=== PATIENT | female | born 1980 | race American Indian/Alaskan Native ===

== ENCOUNTER 2021-08-19 07:20 | Day surgery (SDC) | payer OTHER ==
[2021-08-18 12:07] LABS: Basophils # (Auto) 0.1 K/mm3 (0.0-0.1); Basophils % (Auto) 1.1 % (0.0-1.8); Eosinophils # (Auto) 0.2 K/mm3 (0.0-0.4); Eosinophils % (Auto) 3.2 % (0.0-4.3); Hematocrit 34.9 % (30.3-42.9); Hemoglobin 10.9 gm/dl (10.1-14.3); Lymphocytes # (Auto) 1.9 K/mm3 (1.2-5.4); Lymphocytes % (Auto) 30.2 % (13.4-35.0); Mean Corpuscular HGB Conc 31 % (30-34); Mean Corpuscular Volume 78 fl (79-97); Monocytes # (Auto) 0.5 K/mm3 (0.0-0.8); Monocytes % (Auto) 8.7 % (0.0-7.3); Platelet Count 378 K/mm3 (140-440); Red Blood Count 4.48 M/mm3 (3.65-5.03); Red Cell Distribution Width 14.6 % (13.2-15.2)
--- NOTE | 2021-08-18 14:41 | Anesthesia Consultation ---
Anesthesia Consult and Med Hx Date of service: 08/19/21 - Airway Anesthetic Teeth Evaluation: Good ROM Head & Neck: Adequate Mental/Hyoid Distance: Adequate Mallampati Class: Class II Intubation Access Assessment: Good - Pre-Operative Health Status ASA Pre-Surgery Classification: ASA1 Proposed Anesthetic Plan: General Nerve Block: TAP - Pulmonary Hx Smoking: No Hx Sleep Apnea: No - Central Nervous System Hx Psychiatric Problems: Yes (PTSD (witnessed murder of cousin)) - Gastrointestinal Hx Gastroesophageal Reflux Disease: No - Hematic Hx Sickle Cell Disease: No - Other Systems Hx Alcohol Use: Yes (Occas) Hx Cancer: No Hx Obesity: No
[~2021-08-19 07:20] MED LIST: ACETAMINOPHEN 500 MG TAB PO ONE; CELECOXIB 200 MG CAP PO NR; GABAPENTIN 300 MG CAP PO NR; LACTATED RINGERS 1,000 ML IV SCH; MAGNESIUM OXIDE 400 MG TAB PO ONE; MIDAZOLAM 2 MG/2 ML INJ IV NR; fentaNYL 100 MCG/2 ML INJ IV ONE
[2021-08-19] MEDS ORDERED: NEOMY 40 MG/POLYMYXIN B 200,000 UNITS/ML (GU) AMPULE IR ONE ×2 (07:21→10:49)
--- NOTE | 2021-08-19 07:23 | Short Stay Summary ---
Short Stay Documentation Date of service: 08/19/21 Narrative H&P: 40-year-old -0-0-2 with a history of dysfunctional uterine bleeding. The patient has undergone minor surgical procedure for her abnormal bleeding has been occurring for several years. She has also attempted medical management without significant improvement in her symptoms. She is elected to undergo definitive surgical management. - History Principal diagnosis: Dysfunctional uterine bleeding Past Medical History: other (Endometriosis) Past Surgical History: cholecystectomy, Other (D&C; LEEP; tubal ligation) Social history: single - Allergies and Medications Current Medications: Allergies bee venom protein (honey bee) Allergy (Verified 08/17/21 07:55) Unknown Home Medications Medication Instructions Recorded Confirmed Last Taken Type Elderberry Fruit and Flower [Black 1 each PO DAILY 08/17/21 08/17/21 Unknown History Elderberry 575 mg Cap] Ibuprofen [Motrin] 800 mg PO Q8HR PRN 08/17/21 08/17/21 Unknown History Multivitamin [One-Daily 1 each PO DAILY 08/17/21 08/17/21 Unknown History Multi-Vitamin] Ondansetron HCl [Zofran] 4 mg PO Q6H PRN 08/17/21 08/17/21 Unknown History Venlafaxine [Effexor 37.5mg tab] 37.5 mg PO QDAY 08/17/21 08/17/21 Unknown History Active Medications Celecoxib (Celecoxib 200 Mg Cap) 400 mg PO PREOP NR Stop: 08/19/21 23:59 Gabapentin (Gabapentin 300 Mg Cap) 300 mg PO PREOP NR Stop: 08/19/21 23:59 Lactated Ringer's (Lactated Ringers) 1,000 mls @ 125 mls/hr IV DIRECT HEATHER Midazolam HCl (Midazolam 2 Mg/2 Ml Inj) 2 mg IV PREOP NR Stop: 08/19/21 23:59 - Physical exam General appearance: no acute distress Integumentary: no rash HEENT: Atraumatic Lungs: Clear to auscultation Breasts: deferred Heart: Regular rate Gastrointestinal: normal Female Genitourinary: deferred Rectal Exam: deferred Extremities: no ischemia Neurological: Normal gait - Brief post op/procedure progress note Date of procedure: 08/19/21 Pre-op diagnosis: Dysfunctional uterine bleeding Post-op diagnosis: same Procedure: Robotic hysterectomy and bilateral salpingectomy Anesthesia: GETA Surgeon: ELLEN PABON Estimated blood loss: 50-100ml Pathology: list (Uterus, cervix, bilateral tubes) Specimen disposition: to lab Condition: stable - Hospital course Hospital course: Patient was admitted the day of surgery and underwent a robotic hysterectomy and bilateral salpingectomy. Please see operative note for details of surgery. Postoperative course was uneventful. - Disposition Condition at discharge: Good Disposition: 01 HOME / SELF CARE / HOMELESS Short Stay Discharge Plan Activity: other (Pelvic rest for 6 weeks) Diet: regular Additional Instructions: Patient may schedule follow-up with Dr. Pabon in 4 weeks Pelvic rest for 6 weeks Patient may shower but no tub baths for [address] in 2 weeks
--- NOTE | 2021-08-19 07:52 | Anesthesia Day of Surgery ---
Anesthesia Day of Surgery - Day of Surgery Patient Examined: Yes Patient H&P Reviewed: Yes Patient is NPO: Yes
[2021-08-19] MEDS ORDERED: ONDANSETRON 4 MG/2 ML INJ IV PRN (07:53)
[2021-08-19] MEDS ORDERED: HYDROmorphone 1 MG/1 ML INJ IV PRN (07:53)
[2021-08-19] MEDS ORDERED: ceFAZolin/Water 2 GM/20 ML 2 GM/20 ML SYRINGE IV NR (08:00)
[2021-08-19] MEDS ORDERED: BUPIVACAINE-EPINEPHRINE/PF 0.25%-1:200,000 (30 ML) VIAL INFILTRATI ONE (08:04)
[2021-08-19] MEDS ORDERED: BUPIVACAINE/PF (0.25%) 2.5 MG/ML 30 ML VIAL INFILTRATI ONE (08:05)
[2021-08-19] MEDS ORDERED: dexAMETHasone 4 MG/ML VIAL ONE (08:05)
[2021-08-19] MEDS ORDERED: ONDANSETRON 4 MG/2 ML INJ ONE (09:16)
[2021-08-19] MEDS ORDERED: fentaNYL 100 MCG/2 ML INJ ONE (09:16)
[2021-08-19] MEDS ORDERED: dexAMETHasone 20 MG/5 ML VIAL ONE (09:16)
[2021-08-19] MEDS ORDERED: propofoL 200 MG/20 ML VIAL IV ONE (09:16)
[2021-08-19] MEDS ORDERED: ePHEDrine SULFATE 50 MG/1 ML INJ ONE (09:24)
[2021-08-19] MEDS ORDERED: SODIUM CHLORIDE 0.9% IRR 1,500 ML BOTTLE IR ONE (10:49)
[2021-08-19] MEDS ORDERED: SODIUM CHLORIDE 0.9% IRRIG SOLN 2000 ML IR ONE (10:49)
--- NOTE | 2021-08-19 11:24 | Operative Report ---
Operative Report Operative Report: Date of surgery: August 19, 2021 Preoperative diagnoses: Dysfunctional uterine bleeding Postoperative diagnoses: Same as above Procedure: Robotic hysterectomy; bilateral salpingectomy Surgeon: Erin Reeder M.D. Crank Hand:Taylor Jacobo Anesthesia: Gen. endotracheal anesthesia Estimated blood loss: 50 mL Pathology: Uterus, cervix, bilateral tubes Indication: 40-year-old -0-0-2 with a history of dysfunctional uterine bleeding. The patient elected for definitive surgical management. Procedure: The patient was taken to the operating room and given general endotracheal anesthesia without complication after a time out was performed confirming the surgery and identity of the patient. She was prepped and draped in a normal sterile fashion. A bivalve speculum was placed in the patient's vagina and a single-tooth tenaculum placed on the anterior lip of the cervix. The uterus was sounded with the uterine sound. A stay suture with 0-vicryl was placed at 12 o'clock on the anterior cervix. A [employer] uterine manipulator was placed in the bivalve speculum was then removed. A warm laparotomy sponge was placed in the vagina. Attention was then turned to the patient's abdomen where a 12millimeter supra umbilical skin incision was then made. A Veress needle was placed and peritoneal entry was verified water-filled syringe. Insufflation of the peritoneal cavity was performed with CO2 gas. The 12 mm trocar was then placed under direct visualization. An additional 8 mm robotic trocar was placed on the patient's left and right lateral side just opposite of the supraumbilical trocar. An additional 5 mm right lateral trocar was then placed as the accessory port. The supraumbilical 12 mm trocar site was closed with the Zheng Mcmillan device and 0-vicryl suture. The patient was then placed in steep Trendelenburg. The da Lj robot was then engaged. A fenestrated forcep was placed in arm 2 and a vessel sealer was placed in arm 1. General survey of the abdomen and pelvis revealed evidence of a small leiomyoma on the right cornua of the uterus. Evidence of a prior tubal ligation. Ovaries are normal bilaterally. The surgeon then transferred to the surgical console. The mesosalpinx was then isolated on the right. The vessel sealer was used to coagulate the mesosalpinx which was then transected. The tube was transected from the ovary. The tubo-ovarian ligament was then coagulated and transected. The round ligament was then coagulated and transected also. The vesicouterine peritoneum was then entered from the patient's right side. The uterine vessels were then coagulated with the vessel sealer. The vessels were then transected . Attention was then turned to the patient's left side where the tubo-ovarian ligament and mesosalpinx were again isolated coagulated and transected. The vesical peritoneum was then entered from the left and joined in the midline. Peritoneum was reflected off of the lower uterine segment. Uterine vessels were then coagulated and then transected. The blood supply to the uterus was adequately contained, a posterior colpotomy was made. The V care ring was visualized. Posterior colpotomy was created with the monopolar scissors. The incision was continued circumferentially until anterior colpotomy was made. The cervix and uterus were amputated from the vaginal cuff. The uterus was then removed along with the tubes bilaterally through the vagina and a warm laparotomy sponge was placed and maintain the pneumoperitoneum. The vaginal cuff was then closed in a running fashion with V lock suture. Irrigation of the pelvis was performed. Surgicel was applied to the incision. The [employer] robot was undocked. The trocars were removed and the insuffliation was released. The skin was then reapproximated with 4-0 Monocryl. The tissue was sent to pathology which included the cervix, bilateral tubes and uterus. The patient was then successfully extubated. She was then taken to the recovery room in stable condition. All sponge laps and needle counts were correct x2.
[2021-08-19] MEDS: HYDROmorphone 1 MG/1 ML INJ IV PRN ×4 (12:23→13:55)
--- NOTE | 2021-08-19 14:22 | Post Anesthesia Evaluation ---
- Post Anesthesia Evaluation Patient Participated: Yes Airway Patent: Yes Stable Respiratory Function: Yes Nausea/Vomiting: No Temp > 96.8F: Yes Pain Manageable: Yes Adequeate Hydration: Yes Anesthesia Complications: No Block Receding Appropriately: Yes Patient on Ventilator: No
[2021-08-19 17:18] VITALS: BP 105/60
== END 2021-08-19 15:20 | disposition home or self-care (01) ==
LOC: OR 07:20
PROVIDERS: ATTEND Obstetrics & Gynecology
DX: N93.8 Other specified abnormal uterine and vaginal bleeding (principal); N80.0 Endometriosis of uterus; N88.8 Other specified noninflammatory disorders of cervix uteri; N83.8 Other noninflammatory disorders of ovary, fallopian tube and broad ligament; F43.10 Post-traumatic stress disorder, unspecified; Z91.030 Bee allergy status; Z79.899 Other long term (current) drug therapy; Z98.890 Other specified postprocedural states
CPT/HCPCS: 36415; 58552; 64488; 84703; 85025; 86850; 86900; 86901; 88302; 88307; J0690; J1100; J1170; J2250; J2405; J2704; J3010; J3490; J7120; 64450